=== PATIENT | male | born 1990 | race Caucasian/White ===

== ENCOUNTER 2016-12-23 21:46 | Emergency (ER) | payer OTHER ==
[~2016-12-23] VITALS: Ht 177.8 cm; Wt 87.3 kg
[~2016-12-23 21:46] MED LIST: LURA1TAB PO; PROP20TA3 PO
[2016-12-23 22:04] VITALS: BP 145/94; PULSE 104; RESP 16; TEMP 97.5; O2SAT 97
[2016-12-24 00:02] LABS: AUTOMATED NEUTROPHIL # 11.8 TH/MM3 (1.8-7.7); BASOPHIL % 0.2 % (0.0-2.0); EOSINOPHIL # 0.1 TH/MM3 (0-0.4); EOSINOPHIL % 0.4 % (0.0-4.0); HEMO FLAGS DIFF FINAL; LYMPH % 7.9 % (9.0-44.0); LYMPHOCYTE # 1.1 TH/MM3 (1.0-4.8); MEAN CELL VOLUME 84.6 FL (80.0-100.0); MEAN CORPUSCULAR HEMOGLOBIN 29.6 PG (27.0-34.0); MONO % 6.8 % (0.0-8.0); NEUT % 84.7 % (16.0-70.0); PLATELET COUNT 236 TH/MM3 (150-450); RED BLOOD COUNT 5.91 MIL/MM3 (4.50-5.90); RED CELL DISTRIBUTION WIDTH 12.9 % (11.6-17.2)
--- NOTE | 2016-12-24 00:23 | PD ---
HPI Chief Complaint: Psychiatric Symptoms Time Seen by Provider: 00:16 Travel History International Travel<30 days: No Contact w/Intl Traveler<30days: No Traveled to known affect area: No History of Present Illness HPI 26-year-old white male presents to emergency department under [place] act by PD. The patient states that he was just found out that his girlfriend has been cheating on him with another man. The patient allegedly had made a comment he was going to take additional propanolol to go to sleep. The patient states that he is not suicidal or homicidal. He states that he is upset regarding the breakup. He denies any toxic ingestions. He does admit to some sinus congestion. Patient does smoke cigarettes and drink alcohol on occasion. He does occasionally smoke marijuana. PFSH Past Medical History Narrative Medical Anxiety, bipolar, hypertension Bipolar Disorder: Yes Cardiovascular Problems: Yes (SMALL MURMUR) Diminished Hearing: No Hypertension: Yes Psychiatric: Yes Tetanus Vaccination: < 5 Years Past Surgical History Joint Replacement: No Other Surgery: Yes Social History Alcohol Use: Yes Tobacco Use: Yes Substance Use: Yes (marijuana) Allergies-Medications (Allergen,Severity, Reaction): Coded Allergies: No Known Allergies (Unverified , 09/04/16) Reported Meds & Prescriptions Reported Meds & Active Scripts Active Reported Latuda (Lurasidone HCl) 60 Mg Tab 60 Mg PO DAILY Propranolol (Propranolol HCl) 20 Mg Tab 20 Mg PO DAILY Review of Systems Except as stated in HPI: all other systems reviewed are Neg General / Constitutional: No: Fever, Chills Eyes: No: Photophobia, Visual changes HENT: Positive: Headaches, Congestion, No: Sore Throat Cardiovascular: No: Chest Pain or Discomfort, Palpitations Respiratory: No: Cough, Shortness of Breath Gastrointestinal: No: Nausea, Vomiting Genitourinary: No: Dysuria, Hematuria Musculoskeletal: No: Myalgias, Arthralgias Skin: Positive Rash (skin rash from rough sex), No Lumps Neurologic: No: Weakness, Dizziness Psychiatric: Positive: Depression, Mood Disorder, Substance Abuse, No: Anxiety , Suicidal Ideations, Disorder of Thought, Homicidal Ideation Physical Exam Narrative GENERAL: Well-nourished, well-developed patient. SKIN: Warm and dry. Patient has superficial scratches to the left neck, left upper shoulder and flanks. HEAD: Normocephalic and atraumatic. EYES: No scleral icterus. No injection or drainage. ENT: No nasal drainage noted. Mucous membranes pink. Airway patent. NECK: Supple, trachea midline. Moves head freely without obvious discomfort. CARDIOVASCULAR: Regular rate and rhythm without murmurs, gallops, or rubs. RESPIRATORY: Breath sounds equal bilaterally. No accessory muscle use. GASTROINTESTINAL: Abdomen soft, non-tender, nondistended. EXTREMITIES: No cyanosis or edema. BACK: Nontender without obvious deformity. No CVA tenderness. NEURO: Patient is alert and oriented. no sensorimotor deficits. Nonfocal. Normal speech. PSYCH: No delusions. No auditory or visual hallucinations. Data Data Last Documented VS Vital Signs Date Time Temp Pulse Resp B/P Pulse Ox O2 Delivery O2 Flow Rate FiO2 12/23/16 22:04 97.5 104 16 145/94 97 Room Air Orders Complete Blood Count With Diff (12/23/16 23:20) Comprehensive Metabolic Panel (12/23/16 23:20) Drug Screen, Random Urine (12/23/16 23:20) Alcohol (Ethanol) (12/23/16 23:20) Salicylates (Aspirin) (12/23/16 23:20) Tylenol (Acetaminophen) (12/23/16 23:20) Psych Screen (12/23/16 23:20) Labs Laboratory Tests Test 12/23/16 12/24/16 23:30 00:15 White Blood Count 14.0 TH/MM3 Red Blood Count 5.91 MIL/MM3 Hemoglobin 17.5 GM/DL Hematocrit 50.0 % Mean Corpuscular Volume 84.6 FL Mean Corpuscular Hemoglobin 29.6 PG Mean Corpuscular Hemoglobin 35.0 % Concent Red Cell Distribution Width 12.9 % Platelet Count 236 TH/MM3 Mean Platelet Volume 8.3 FL Neutrophils (%) (Auto) 84.7 % Lymphocytes (%) (Auto) 7.9 % Monocytes (%) (Auto) 6.8 % Eosinophils (%) (Auto) 0.4 % Basophils (%) (Auto) 0.2 % Neutrophils # (Auto) 11.8 TH/MM3 Lymphocytes # (Auto) 1.1 TH/MM3 Monocytes # (Auto) 1.0 TH/MM3 Eosinophils # (Auto) 0.1 TH/MM3 Basophils # (Auto) 0.0 TH/MM3 CBC Comment DIFF FINAL Differential Comment Sodium Level 137 MEQ/L Potassium Level 5.1 MEQ/L Chloride Level 101 MEQ/L Carbon Dioxide Level 31.1 MEQ/L Anion Gap 5 MEQ/L Blood Urea Nitrogen 16 MG/DL Creatinine 1.05 MG/DL Estimat Glomerular Filtration 87 ML/MIN Rate Random Glucose 118 MG/DL Calcium Level 9.8 MG/DL Total Bilirubin 0.4 MG/DL Aspartate Amino Transf 39 U/L (AST/SGOT) Alanine Aminotransferase 38 U/L (ALT/SGPT) Alkaline Phosphatase 76 U/L Total Protein 8.9 GM/DL Albumin 5.0 GM/DL Salicylates Level 1.9 MG/DL Acetaminophen Level LESS THAN 2.0 MCG/ML Ethyl Alcohol Level LESS THAN 3 MG/DL Urine Opiates Screen NEG Urine Barbiturates Screen NEG Urine Amphetamines Screen NEG Urine Benzodiazepines Screen NEG Urine Cocaine Screen NEG Urine Cannabinoids Screen POS MDM Medical Decision Making Medical Screen Exam Complete: Yes Emergency Medical Condition: Yes Medical Record Reviewed: Yes Interpretation(s) Laboratory Tests Test 12/23/16 12/24/16 23:30 00:15 White Blood Count 14.0 TH/MM3 Red Blood Count 5.91 MIL/MM3 Hemoglobin 17.5 GM/DL Hematocrit 50.0 % Mean Corpuscular Volume 84.6 FL Mean Corpuscular Hemoglobin 29.6 PG Mean Corpuscular Hemoglobin 35.0 % Concent Red Cell Distribution Width 12.9 % Platelet Count 236 TH/MM3 Mean Platelet Volume 8.3 FL Neutrophils (%) (Auto) 84.7 % Lymphocytes (%) (Auto) 7.9 % Monocytes (%) (Auto) 6.8 % Eosinophils (%) (Auto) 0.4 % Basophils (%) (Auto) 0.2 % Neutrophils # (Auto) 11.8 TH/MM3 Lymphocytes # (Auto) 1.1 TH/MM3 Monocytes # (Auto) 1.0 TH/MM3 Eosinophils # (Auto) 0.1 TH/MM3 Basophils # (Auto) 0.0 TH/MM3 CBC Comment DIFF FINAL Differential Comment Sodium Level 137 MEQ/L Potassium Level 5.1 MEQ/L Chloride Level 101 MEQ/L Carbon Dioxide Level 31.1 MEQ/L Anion Gap 5 MEQ/L Blood Urea Nitrogen 16 MG/DL Creatinine 1.05 MG/DL Estimat Glomerular Filtration 87 ML/MIN Rate Random Glucose 118 MG/DL Calcium Level 9.8 MG/DL Total Bilirubin 0.4 MG/DL Aspartate Amino Transf 39 U/L (AST/SGOT) Alanine Aminotransferase 38 U/L (ALT/SGPT) Alkaline Phosphatase 76 U/L Total Protein 8.9 GM/DL Albumin 5.0 GM/DL Salicylates Level 1.9 MG/DL Acetaminophen Level LESS THAN 2.0 MCG/ML Ethyl Alcohol Level LESS THAN 3 MG/DL Urine Opiates Screen NEG Urine Barbiturates Screen NEG Urine Amphetamines Screen NEG Urine Benzodiazepines Screen NEG Urine Cocaine Screen NEG Urine Cannabinoids Screen POS CBC & BMP Diagram 12/23/16 23:30 Differential Diagnosis MDM: High Differential diagnoses: Schizophrenia, schizoaffective disorder, bipolar, anxiety, depression, adjustment reaction, mood disorder NOS, ODD, depressive disorder NOS, dementia, dementia with agitation, psychosis NOS, substance induced mood disorder, intermittent explosive disorder, Asperger syndrome, infection,electrolyte abnormality, malingering. Narrative Course Mental health screening discussed with the patient. Psychiatric screen ordered. The patient is been medically cleared. This is adjustment reaction with depressed mood, bipolar Diagnosis Primary Impression: Reaction, adjustment, with depressed mood, brief Additional Impression: Bipolar 1 disorder Condition: Stable Hernandez Segal Dec 24, 2016 00:23
[2016-12-24 00:28] LABS: ALKALINE PHOSPHATASE 76 U/L (45-117); TOTAL BILIRUBIN ADULT 0.4 MG/DL (0.2-1.0)
[2016-12-24 00:33] LABS: ACETAMINOPHEN LESS THAN 2.0 MCG/ML (10.0-30.0); ALT (GPT) 38 U/L (12-78); ANION GAP 5 MEQ/L (5-15); AST (GOT) 39 U/L (15-37); BICARBONATE 31.1 MEQ/L (21.0-32.0); BLOOD UREA NITROGEN 16 MG/DL (7-18); CHLORIDE 101 MEQ/L (98-107); GLOMERULAR FILTRATION RATE 87 ML/MIN (>89); POTASSIUM 5.1 MEQ/L (3.5-5.1); SODIUM (NA) 137 MEQ/L (136-145)
[2016-12-24 00:43] LABS: AMPHETAMINE, URINE NEG (NEG); BARBITURATES, URINE NEG (NEG); COCAINE, URINE NEG (NEG)
[2016-12-24 02:00] VITALS: BP 127/59; PULSE 89; RESP 16; O2SAT 97
[2016-12-24 06:25] VITALS: BP 134/60; PULSE 66; RESP 17; O2SAT 98
[2016-12-24] MEDS ORDERED: PROP20TA3 PO (06:40)
[2016-12-24] MEDS ORDERED: LURA1TAB2 PO (06:40)
[2016-12-24 11:00] VITALS: BP 131/72; PULSE 97; RESP 18
== END 2016-12-24 18:36 ==
LOC: NEPJ 21:46
DX: F39 Unspecified mood [affective] disorder (principal); F17.210 Nicotine dependence, cigarettes, uncomplicated; I10 Essential (primary) hypertension; F41.8 Other specified anxiety disorders; F31.9 Bipolar disorder, unspecified
CPT/HCPCS: 80053; 80307; 80320; 80329; 85025; 99283; G0480

== ENCOUNTER 2017-11-09 19:36 | Emergency (ER) | payer SELFPAY ==
[~2017-11-09] VITALS: Ht 177.8 cm; Wt 96.5 kg
[~2017-11-09 19:36] MED LIST changes: -LURA1TAB PO; +LURA1TAB2 PO
[2017-11-09 19:40] VITALS: BP 135/84; PULSE 96; RESP 20; TEMP 98.4; O2SAT 97
--- NOTE | 2017-11-09 19:58 | PD ---
HPI Chief Complaint: Complaint Time Seen by Provider: 19:50 Travel History International Travel<30 days: No Contact w/Intl Traveler<30days: No Traveled to known affect area: No History of Present Illness HPI This patient complains of urethral discharge and dysuria. Duration 3 days. Severity is moderate. No fever. PFSH Past Medical History Bipolar Disorder: Yes Cardiovascular Problems: Yes (SMALL MURMUR) Diminished Hearing: No Hypertension: Yes Musculoskeletal: Yes Psychiatric: Yes Tetanus Vaccination: < 5 Years Influenza Vaccination: Yes Past Surgical History Joint Replacement: No Other Surgery: Yes (2 PINS LEFT HAND) Social History Alcohol Use: Yes Tobacco Use: Yes Substance Use: Yes Allergies-Medications (Allergen,Severity, Reaction): Coded Allergies: No Known Allergies (Unverified Adverse Reaction, Unknown, 11/09/17) Reported Meds & Prescriptions Reported Meds & Active Scripts Active No Active Prescriptions or Reported Medications Review of Systems General / Constitutional: No: Fever HENT: No: Headaches Cardiovascular: No: Chest Pain or Discomfort Respiratory: No: Cough Physical Exam Narrative GASTROINTESTINAL: Abdomen soft, non-tender, nondistended. Positive bowel sounds. No hepato-splenomegaly, or palpable masses. No guarding. SKIN: Focused skin assessment reveals no rash or ulcers. Skin is warm and dry. Palpation shows no induration or nodules. : Circumcised penis without lesions. No active discharge now Data Data Last Documented VS Vital Signs Date Time Temp Pulse Resp B/P (MAP) Pulse Ox O2 Delivery O2 Flow Rate FiO2 11/09/17 19:40 98.4 96 20 135/84 (101) 97 Orders Orders Urinalysis - C+S If Indicated (11/09/17 19:56) Gc And Chlamydia Pcr (11/09/17 19:56) Ceftriaxone Inj (Rocephin Inj) (11/09/17 20:00) Azithromycin Powd Pack (Zithromax Powd P (11/09/17 20:00) Urine Culture (11/09/17 19:55) Labs Laboratory Tests Test 11/09/17 19:55 Urine Color YELLOW Urine Turbidity CLOUDY Urine pH 6.0 Urine Specific [place] 1.025 Urine Protein 100 mg/dL Urine Glucose (UA) NEG mg/dL Urine Ketones TRACE mg/dL Urine Occult Blood MOD Urine Nitrite NEG Urine Bilirubin NEG Urine Leukocyte Esterase LARGE Urine RBC 10-14 /hpf Urine WBC INNUM /hpf Urine Squamous Epithelial Cells 0-5 /hpf Urine Bacteria FEW /hpf Microscopic Urinalysis Comment CULTURE INDICATED MDM Medical Decision Making Medical Screen Exam Complete: Yes Emergency Medical Condition: Yes Medical Record Reviewed: Yes Differential Diagnosis Chlamydia, gonorrhea, urethritis nonspecific Narrative Course I have reviewed the patient's electronic medical record. Urinalysis shows pyuria as expected Urine PCR was sent for GC and Chlamydia I gave him IM Rocephin and 2 g Zithromax And health department or primary care follow-up for further testing Diagnosis Primary Impression: Urethritis, unspecified Additional Instructions: The patient was advised to follow up with their physician or health department for further testing Med/Other Pt SpecificInfo: Other Scripts No Active Prescriptions or Reported Meds Disposition: 01 DISCHARGE HOME Condition: Stable Nicolas Scruggs MD Nov 09, 2017 19:58
[2017-11-09] MEDS ORDERED: AZITHROMYCIN PWD FOR SUSP 1 GM PACKET PO ONE (20:00)
[2017-11-09 20:04] LABS: BLOOD, URINE MOD (NEG); GLUCOSE,URINE NEG (NEG); KETONE, URINE TRACE mg/dL (NEG); NITRITE,URINE NEG (NEG); URINE LEUKOCYTE ESTERASE LARGE (NEG)
[2017-11-09 20:09] LABS: BILIRUBIN, URINE NEG (NEG)
[2017-11-09 20:10] LABS: URINE COLOR YELLOW (YELLW/STRAW)
[2017-11-09 20:11] LABS: BACTERIA, URINE FEW /hpf; SQUAMOUS EPITHELIAL CELL URINE 0-5 /hpf (0-5); WBC, URINE INNUM /hpf (0-5)
== END 2017-11-09 21:13 | disposition home or self-care (01) ==
LOC: PHED 19:36
DX: A54.01 Gonococcal cystitis and urethritis, unspecified (principal); F31.9 Bipolar disorder, unspecified; I10 Essential (primary) hypertension; Z72.0 Tobacco use
CPT/HCPCS: 81001; 87086; 87491; 87591; 96372; 99284; J0696

== ENCOUNTER 2018-01-11 14:01 | Emergency (ER) | payer SELFPAY ==
[~2018-01-11] VITALS: Ht 177.8 cm; Wt 98.0 kg
[2018-01-11 14:14] VITALS: BP 137/87; PULSE 102; RESP 16; TEMP 98.3; O2SAT 96
[2018-01-11 14:29] LABS: BILIRUBIN, URINE NEG (NEG); BLOOD, URINE LARGE (NEG); GLUCOSE,URINE NEG (NEG); KETONE, URINE NEG (NEG); NITRITE,URINE NEG (NEG); URINE LEUKOCYTE ESTERASE NEG (NEG)
--- NOTE | 2018-01-11 14:29 | PD ---
HPI Chief Complaint: Complaint Time Seen by Provider: 14:19 Travel History International Travel<30 days: No Contact w/Intl Traveler<30days: No Traveled to known affect area: No History of Present Illness HPI Patient comes to the emergency department complaining of dysuria that began today. Patient denies any testicular pain, abdominal pain, back pain, or fevers. Patient reports he is sexually active with 1 person. Patient reports last time this happened to him he had to get a shot was trying to avoid that by coming in early. Patient denies anything making symptoms better. Pain is worse with voiding. Denies any radiation of pain. Denies any discharge. Patient reports his partner was never treated as far as he knows. PFSH Past Medical History Bipolar Disorder: Yes Cardiovascular Problems: Yes (SMALL MURMUR) Diminished Hearing: No Hypertension: Yes Musculoskeletal: Yes Psychiatric: Yes Past Surgical History Surgical History: No Previous Surgery Joint Replacement: No Other Surgery: Yes (2 PINS LEFT HAND) Social History Alcohol Use: No Tobacco Use: No Substance Use: Yes Allergies-Medications (Allergen,Severity, Reaction): Coded Allergies: No Known Allergies (Unverified Adverse Reaction, Unknown, 01/11/18) Reported Meds & Prescriptions Reported Meds & Active Scripts Active No Active Prescriptions or Reported Medications Review of Systems Except as stated in HPI: all other systems reviewed are Neg Physical Exam Narrative GENERAL: Well-developed, overly nourished, in no acute distress, and non-ill appearing. SKIN: Focused skin assessment warm and dry. HEAD: Atraumatic. Normocephalic. EYES: Pupils equal and round. EOMI. No scleral icterus. No injection or drainage. ENT: No nasal bleeding or discharge. Mucous membranes pink and moist. NECK: Trachea midline. Supple. No nuclear rigidity. RESPIRATORY: No accessory muscle use. No respiratory distress. GASTROINTESTINAL: Abdomen soft, non-tender, nondistended, and no guarding. Hepatic and splenic margins not palpable. Normal bowel sounds x4. No pulsatile mass. No CVA tenderness. MUSCULOSKELETAL: No obvious deformities. No clubbing. No cyanosis. No edema. Full range of motion. NEUROLOGICAL: Awake and alert. No obvious cranial nerve deficits. Motor grossly within normal limits. Normal speech. PSYCHIATRIC: Appropriate mood and affect; insight and judgment normal. Data Data Last Documented VS Vital Signs Date Time Temp Pulse Resp B/P (MAP) Pulse Ox O2 Delivery O2 Flow Rate FiO2 01/11/18 14:14 98.3 102 16 137/87 (104) 96 Orders Orders Urinalysis - C+S If Indicated (01/11/18 14:14) Gc And Chlamydia Pcr (01/11/18 14:24) Azithromycin Powd Pack (Zithromax Powd P (01/11/18 14:30) Metronidazole (Flagyl) (01/11/18 14:30) Sodium Chloride 0.9% Flush (Ns Flush) (01/11/18 14:30) Ceftriaxone Inj (Rocephin Inj) (01/11/18 14:30) Lidocaine Pf 1% Inj (Xylocaine-Mpf 1% In (01/11/18 14:30) Ed Discharge Order (01/11/18 14:29) Ct Abd/Pel W/O Iv Contrast (01/11/18 14:47) Labs Laboratory Tests Test 01/11/18 14:18 Urine Color YELLOW Urine Turbidity CLEAR Urine pH 6.0 Urine Specific [place] 1.025 Urine Protein NEG mg/dL Urine Glucose (UA) NEG mg/dL Urine Ketones NEG mg/dL Urine Occult Blood LARGE Urine Nitrite NEG Urine Bilirubin NEG Urine Leukocyte Esterase NEG Urine RBC 15-19 /hpf Urine WBC 0-2 /hpf Urine Squamous Epithelial Cells 0-5 /hpf Microscopic Urinalysis Comment CULT NOT INDICATED MDM Medical Decision Making Medical Screen Exam Complete: Yes Emergency Medical Condition: No Interpretation(s) Last Impressions Abdomen/Pelvis CT 01/11/18 1447 Signed Impressions: Service Date/Time: Thursday, January 11, 2018 14:56 - CONCLUSION: 1. No evidence of hydronephrosis or calcified stones on this renal colic CT. 2. Probable left adrenal adenoma. 3. Subcutaneous abnormality with hyperdensity and gas in the right gluteal region suggestive of recent injection. Recommend clinical correlation. Joselito Lazar MD Differential Diagnosis UTI, gonorrhea, chlamydia, trichomonas Narrative Course Patient hematuria I suspect is secondary to infection.This finding was discussed with the patient and the patient was instructed to follow up with primary care doctor for recheck and possible urology referral urology if needed to rule out etiologies such as cancer. Patient agreed with plan. Patient in no obvious distress upon re-evaluation. All pertinent laboratory/Radiology result(s ) discussed with patient with the exception of GC and Chlamydia pending at time of discharge. Patient was asked if they wanted to speak to my attending, which the patient did not wish to do at this time. Any questions/concerns in reference to patient diagnosis/condition discussed and clarified prior to patient's discharge. Reinforced sheer importance of close follow up with patient 's primary physician or primary care clinic. Instructed patient to return to ED immediately, if symptoms return/worsen. Patient showed understanding of above instructions. Further instructions and recommendations were detailed in discharge paperwork. Patient ambulated without difficulty out of ED at discharge. Diagnosis Primary Impression: Dysuria Additional Impressions: Possible exposure to STD Hematuria Qualified Codes: R31.9 - Hematuria, unspecified Adrenal adenoma Qualified Codes: D35.02 - Benign neoplasm of left adrenal gland Referrals: [facility] Dept. Patient Instructions: Dysuria (ED), General Instructions, Sexually Transmitted Diseases (DC) Additional Instructions: Follow-up with your primary care physician and/or health Department for additional STD testing. Follow-up with your primary care physician regarding hematuria and incidental findings noted on CT today. Notify all sexual partners have them tested and treated. Do not have intercourse until all sexual partners tested and treated. Practice safe sex to prevent further STDs and/or unwanted pregnancies. If you would like a copy of your gonorrhea and chlamydia results bring a photo ID to medical records in 24-48 hours to get a copy. Return to the emergency department if symptoms get worse. Scripts No Active Prescriptions or Reported Meds Disposition: 01 DISCHARGE HOME Condition: Stable Martinez Matos Jan 11, 2018 14:29
[2018-01-11] MEDS ORDERED: AZITHROMYCIN PWD FOR SUSP 1 GM PACKET PO ONE (14:30)
[2018-01-11] MEDS ORDERED: LIDOCAINE HCL 1% PF 30 ML VIAL XX ONE (14:30)
[2018-01-11] MEDS ORDERED: metroNIDAZOLE 500 MG TAB PO ONE (14:30)
[2018-01-11] MEDS ORDERED: SODIUM CHLORIDE 0.9% FLUSH 10 ML FLUSH IVF PRN (14:30)
[2018-01-11 14:36] LABS: RBC, URINE 15-19 /hpf (0-3); SQUAMOUS EPITHELIAL CELL URINE 0-5 /hpf (0-5); URINE COLOR YELLOW (YELLW/STRAW); WBC, URINE 0-2 /hpf (0-5)
--- NOTE | 2018-01-11 15:11 | RADRPT ---
EXAM DATE/TIME: 01/11/2018 14:56 [facility] COMPARISON: No previous studies available for comparison. INDICATIONS : Dysuria today. ORAL CONTRAST: No oral contrast ingested. RADIATION DOSE: 17.28 CTDIvol (mGy) MEDICAL HISTORY : Hypertension. SURGICAL HISTORY : None. ENCOUNTER: Initial ACUITY: 1 day PAIN SCALE: 2/10 LOCATION: Abdomen. TECHNIQUE: Renal colic protocol. Volumetric scanning of the abdomen and pelvis was performed. Using automated exposure control and adjustment of the mA and/or kV according to patient size, radiation dose was kep t as low as reasonably achievable to obtain optimal diagnostic quality images. DICOM format image da ta is available electronically for review and comparison. FINDINGS: Right side: No evidence of hydronephrosis. No calcified stones in the collecting system or the right ureter. Left side: No evidence of hydronephrosis. No calcified stones in the collecting system or left ureter. Bladder: Smooth margins. No calcifications within the lumen. Other: No calcified gallstones in a contracted gallbladder. No dilated loops of small or large bowel. No e vidence of free fluid. Low density mass in the cortex of the left adrenal gland measuring 1.8 cm, an d mean CT density 22 Hounsfield units. There is a mixed density abnormality in the subcutaneous soft tissues of the posterior right gluteal region which measures 2.8 cm, contains some hyperdense areas admixed with gas; has there been a recent subcutaneous injection in this area?. CONCLUSION: 1. No evidence of hydronephrosis or calcified stones on this renal colic CT. 2. Probable left adrenal adenoma. 3. Subcutaneous abnormality with hyperdensity and gas in the right gluteal region suggestive of rec ent injection. Recommend clinical correlation. Joselito Lazar MD on January 11, 2018 at 15:05 Board Certified Radiologist. This report was verified electronically.
== END 2018-01-11 15:29 | disposition home or self-care (01) ==
LOC: PHEFT 14:01
DX: R30.0 Dysuria (principal); Z20.2 Contact with and (suspected) exposure to infections with a predominantly sexual mode of transmission; R31.9 Hematuria, unspecified; D35.02 Benign neoplasm of left adrenal gland; I10 Essential (primary) hypertension; F31.9 Bipolar disorder, unspecified
CPT/HCPCS: 74176; 81001; 87491; 87591; 96372; 99284; J0696

== ENCOUNTER 2018-05-09 20:38 | Emergency (ER) | payer SELFPAY ==
[~2018-05-09] VITALS: Ht 177.8 cm; Wt 101.1 kg
[2018-05-09 20:56] VITALS: BP 156/92; PULSE 101; RESP 18; TEMP 98.6; O2SAT 97
--- NOTE | 2018-05-09 22:27 | RADRPT ---
EXAM DATE: 05/09/2018 10:24 PM EDT AGE/SEX: 27 years / Male INDICATIONS: Patient complains of right shoulder pain and limited [place] CLINICAL DATA: This is the patient's initial encounter. Patient reports that signs and symptoms have been present for 2 days and indicates a pain score of 6/10. MEDICAL/SURGICAL HISTORY: None. None. COMPARISON: No prior exams available for comparison. FINDINGS: Bony structures are intact and in normal alignment. Joints are intact without dislocation or signifi cant arthropathy. Osseous density is normal. Soft tissues are unremarkable. No radiopaque foreign bodies seen. CONCLUSION: 1. No acute fracture or dislocation. Electronically signed by: Ronnie Watts MD 05/09/2018 10:26 PM EDT
[2018-05-09] MEDS ORDERED: IBUP1TAB7 PO (23:36)
--- NOTE | 2018-05-09 23:37 | PD ---
HPI Chief Complaint: Musculoskeletal Complaint Time Seen by Provider: 23:32 Travel History International Travel<30 days: No Contact w/Intl Traveler<30days: No Traveled to known affect area: No History of Present Illness HPI The patient is a 27-year-old right-hand male that doleful on the beach [place] his girlfriend and with his right arm extended apparently hit the sand and the force was transmitted up his shoulder. He has anterior lateral shoulder pain since. He has difficulty abducting the shoulder. He cannot abduct his shoulder beyond 30. 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 PFSH Past Medical History Bipolar Disorder: Yes Cardiovascular Problems: Yes (SMALL MURMUR) Diminished Hearing: No Hypertension: Yes Musculoskeletal: Yes Psychiatric: Yes ?: Not Past Surgical History Joint Replacement: No Other Surgery: Yes (2 PINS LEFT HAND) Social History Alcohol Use: Yes (rarely) Tobacco Use: Yes (1 pk per week) Substance Use: No Allergies-Medications (Allergen,Severity, Reaction): Coded Allergies: No Known Allergies (Unverified Adverse Reaction, Unknown, 01/11/18) Reported Meds & Prescriptions Reported Meds & Active Scripts Active No Active Prescriptions or Reported Medications Review of Systems Except as stated in HPI: all other systems reviewed are Neg Physical Exam Narrative GENERAL: Well-nourished, well-developed patient in slight apparent distress with his right shoulder pain. SKIN: Focused skin assessment warm/dry. HEAD: Normocephalic. EYES: No scleral icterus. No injection or drainage. NECK: Supple, trachea midline. No JVD or lymphadenopathy. CARDIOVASCULAR: Regular rate and rhythm without murmurs, gallops, or rubs. RESPIRATORY: Breath sounds equal bilaterally. No accessory muscle use. GASTROINTESTINAL: Abdomen soft, non-tender, nondistended. MUSCULOSKELETAL: No cyanosis, or edema. The patient cannot actively abduct his shoulder beyond 30. He has complete passive range of motion and there is no swelling or deformity of the right shoulder. Good capillary refill and pinprick present distally on the right hand. There is tenderness around the rotator cuff area anteriorly and laterally. BACK: Nontender without obvious deformity. No CVA tenderness. Data Data Last Documented VS Vital Signs Date Time Temp Pulse Resp B/P (MAP) Pulse Ox O2 Delivery O2 Flow Rate FiO2 05/09/18 20:56 98.6 101 18 156/92 (113) 97 Orders Orders Shoulder, Complete (>2vws) (05/09/18 ) MDM Medical Decision Making Medical Screen Exam Complete: Yes Emergency Medical Condition: Yes Medical Record Reviewed: Yes Differential Diagnosis Fracture shoulder, dislocation shoulder, rotator cuff tear Narrative Course The patient appears to have a rotator cuff tear of the right shoulder. He needs to follow-up with orthopedics and is given a sling. He is given a work note stating that he needs off work until cleared by his orthopedic physician. Diagnosis Primary Impression: Rotator cuff tear arthropathy of right shoulder Additional Instructions: Use the sling and use the range of motion exercises I told you where you lean forward and gently rotate your arm in a telida. Follow-up with orthopedics. They may wish to do an MRI or other studies. Take the Motrin regularly, 1 tablet 3 times daily. Med/Other Pt SpecificInfo: Prescription(s) given Scripts Ibuprofen (Ibuprofen) 800 Mg Tab 800 MG PO TID, #30 TAB 0 Refills Prov: Caesar Neff MD 05/09/18 Disposition: 01 DISCHARGE HOME Condition: Stable Caesar Neff MD May 09, 2018 23:37
[2018-05-09] MEDS ORDERED: IBUPROFEN 800 MG TAB PO ONE (23:45)
[2018-05-09 23:51] VITALS: BP 150/87
== END 2018-05-09 23:52 | disposition home or self-care (01) ==
LOC: PHEFT 20:38
DX: M75.101 Unspecified rotator cuff tear or rupture of right shoulder, not specified as traumatic (principal); I10 Essential (primary) hypertension; F17.210 Nicotine dependence, cigarettes, uncomplicated; F31.9 Bipolar disorder, unspecified; W18.39XA Other fall on same level, initial encounter; Y93.02 Activity, running; Y92.832 Beach as the place of occurrence of the external cause
CPT/HCPCS: 73030; 99283